=== PATIENT | female | born 1995 | race Hispanic/Latino ===

== ENCOUNTER 2025-06-18 06:43 | Emergency (ER) | payer OTHER ==
[~2025-06-18] VITALS: Ht 167.6 cm; Wt 95.3 kg
[2025-06-18 06:47] VITALS: PULSE 63; RESP 17; TEMP 98.5; O2SAT 100
[2025-06-18 07:12] LABS: BASOPHILS % 1.0 % (0.0-1.0); EOSINOPHILS % 4.0 % (0.0-6.0); LYMPHOCYTES % 38.0 % (18.0-39.1); MONOCYTES % 6.3 % (4.4-11.3); NEUTROPHILS % 50.3 % (38.7-80.0); RED CELL DISTRIBUTION WIDTH 12.4 % (11.7-14.4)
[2025-06-18 07:15] LABS: LEUKOCYTE ESTERASE ,URINE NEGATIVE (NEGATIVE); PROTEIN,URINE DIPSTICK NEGATIVE (NEGATIVE); URINE UROBILINOGEN 0.2 mg/dL (0.2 - 1)
[2025-06-18 07:24] LABS: INR 0.94
[2025-06-18 07:26] LABS: EST GLOMERULAR FILTRATION RATE 100 ML/MIN (>=60)
[2025-06-18 07:28] LABS: EPITHELIAL CELLS,URINE MODERATE /LPF; WBC,URINE (MAN) 0-5 /HPF (0-5)
[2025-06-18] MEDS: SODIUM CHLORIDE 0.9% 1000ML 1,000 ML IV STA (07:35)
[2025-06-18] MEDS: ONDANSETRON HCL INJ 2MG/ML 2ML 2 MG/ML VIAL IV STA (07:35)
[2025-06-18] MEDS ORDERED: IOPAMIDOL 370 MG/ML 100 ML INFUS..BTL INJ ONE (07:39)
[2025-06-18] MEDS ORDERED: DICYCLOMINE HCL20 MG PO (10:49)
[2025-06-18] MEDS ORDERED: PANTOPRAZOLE SO40 MG PO (10:49)
[2025-06-18] MEDS ORDERED: ONDANSETRON ODT4 MG PO (10:49)
== END 2025-06-18 11:40 | disposition home or self-care (01) ==
LOC: ER 06:46
DX: R10.12 Left upper quadrant pain (principal); K29.70 Gastritis, unspecified, without bleeding; R11.2 Nausea with vomiting, unspecified; K76.0 Fatty (change of) liver, not elsewhere classified
CPT/HCPCS: 36415; 74177; 80053; 81001; 83690; 83735; 84702; 85025; 85610; 85730; 99284; J2405; J2470; J7030; Q9967